=== PATIENT | female | born 1985 | race American Indian/Alaskan Native ===

== ENCOUNTER 2017-06-10 10:01 | Emergency (ER) | payer OTHER, MEDICAID ==
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
[2017-06-10] MEDS ORDERED: FLEXERIL PO ONE (14:07)
[2017-06-10] MEDS ORDERED: PERCOCET 5/325 PO ONE (14:07)
[2017-06-10 15:14] VITALS: BP 121/71
== END 2017-06-10 15:15 | disposition home or self-care (01) ==
LOC: ED 10:01
DX: S16.1XXA Strain of muscle, fascia and tendon at neck level, initial encounter (principal); M54.5 Low back pain; M62.830 Muscle spasm of back; M79.622 Pain in left upper arm; M79.621 Pain in right upper arm; M79.605 Pain in left leg; V89.2XXA Person injured in unspecified motor-vehicle accident, traffic, initial encounter; Y93.89 Activity, other specified; Y99.8 Other external cause status; Y92.89 Other specified places as the place of occurrence of the external cause
CPT/HCPCS: 99282

== ENCOUNTER 2020-11-17 17:58 | Emergency (ER) | payer SELFPAY ==
[2020-11-17 18:20] VITALS: BP 135/89
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
== END 2020-11-17 19:01 | disposition home or self-care (01) ==
LOC: ED 17:58
DX: S16.1XXA Strain of muscle, fascia and tendon at neck level, initial encounter (principal); S00.03XA Contusion of scalp, initial encounter; S09.90XA Unspecified injury of head, initial encounter; D64.9 Anemia, unspecified; Z79.899 Other long term (current) drug therapy; W22.8XXA Striking against or struck by other objects, initial encounter; Y93.89 Activity, other specified; Y92.89 Other specified places as the place of occurrence of the external cause; Y99.0 Civilian activity done for income or pay
CPT/HCPCS: 99282